=== PATIENT | female | born 1995 | race American Indian/Alaskan Native ===

== ENCOUNTER 2018-02-15 10:36 | Emergency (ER) | payer MEDICAID ==
[2018-02-15 10:49] VITALS: BP 132/87
== END 2018-02-15 15:31 ==
LOC: ED 10:36
DX: N93.9 Abnormal uterine and vaginal bleeding, unspecified (principal); Z53.21 Procedure and treatment not carried out due to patient leaving prior to being seen by health care provider

== ENCOUNTER 2018-07-17 09:36 | Emergency (ER) | payer MEDICAID ==
[2018-07-17 09:47] VITALS: BP 148/84
[2018-07-17 10:23] LABS: Basophils % (Auto) 0.5 % (0.0-1.8); Eosinophils % (Auto) 0.9 % (0.0-4.3); Hematocrit 36.8 % (30.3-42.9); Hemoglobin 12.3 gm/dl (10.1-14.3); Lymphocytes # (Auto) 2.4 K/mm3 (1.2-5.4); Lymphocytes % (Auto) 49.6 % (13.4-35.0); Mean Corpuscular HGB Conc 34 % (30-34); Mean Corpuscular Hemoglobin 29 pg (28-32); Mean Corpuscular Volume 85 fl (79-97); Monocytes # (Auto) 0.4 K/mm3 (0.0-0.8); Monocytes % (Auto) 8.5 % (0.0-7.3); Platelet Count 264 K/mm3 (140-440); Red Blood Count 4.32 M/mm3 (3.65-5.03); Red Cell Distribution Width 15.5 % (13.2-15.2)
--- NOTE | 2018-07-17 12:01 | Emergency Department Report ---
ED Female HPI - General Chief complaint: Vaginal Bleeding Stated complaint: /VAG BLEEDING Time Seen by Provider: 07/17/18 11:30 Source: patient Mode of arrival: Ambulatory Limitations: No Limitations - History of Present Illness Initial comments: This is a 23-year-old female here port that she is on control but was taken antibiotics for strep earlier this month. She said all test 2. She reports that she is having some vaginal spotting but stopped yesterday. She states that if she is not sure if she is having breakthrough bleeding from being off control or she is having a miscarriage. She is reported mild cramping to her abdomen. Pain is 2/10 and crampy. Intermittent. Reports some urinary frequency but denies any urinary burning or urgency. Denies any fever or chills. Denies any nausea or vomiting or back pain. No alleviating or exacerbating factors. MD Complaint: vaginal bleeding, other (abdominal pain) Onset/Timin -: days(s) Location: suprapubic Radiation: non-radiating Severity: mild Severity scale (0 -10): 2 Quality: cramping Consistency: intermittent Improves with: none Worsens with: none Are you Now?: Yes (she said home test positive 2) Last Menstrual Period: 12/10/17 EDC: 09/16/18 Associated Symptoms: vaginal bleeding, abdominal pain. denies: vaginal discharge, nausea/vomiting, fever/chills, headaches, loss of appetite, dysuria, hematuria, rash, seizure, shortness of breath, syncope, weakness - Related Data Sexually active: Yes Allergies Allergy/AdvReac Type Severity Reaction Status Date / Time No Known Allergies Allergy Verified 07/17/18 09:44 ED Review of Systems ROS: Stated complaint: /VAG BLEEDING Other details as noted in HPI Constitutional: denies: chills, fever ENT: denies: throat pain Respiratory: denies: cough, shortness of breath, SOB with exertion, SOB at rest , wheezing Cardiovascular: denies: chest pain, palpitations, edema, paroxysmal nocturnal dyspnea Gastrointestinal: abdominal pain. denies: nausea, vomiting, diarrhea, constipation, hematemesis, melena, hematochezia Genitourinary: frequency, abnormal menses. denies: urgency, dysuria, hematuria , discharge Musculoskeletal: denies: back pain, joint swelling, arthralgia Skin: denies: rash, lesions Neurological: denies: headache, weakness, paresthesias Psychiatric: denies: anxiety, depression Hematological/Lymphatic: denies: easy bleeding, easy bruising ED Past Medical Hx - Past Medical History Hx Hypertension: Yes Hx Asthma: Yes - Surgical History Additional Surgical History: c section. - Social History Smoking Status: Never Smoker Substance Use Type: None ED Physical Exam - General Limitations: No Limitations General appearance: alert, in no apparent distress - Head Head exam: Present: atraumatic, normocephalic, normal inspection - ENT ENT exam: Present: normal exam, normal orophraynx, mucous membranes moist - Neck Neck exam: Present: normal inspection, full ROM. Absent: tenderness - Respiratory Respiratory exam: Present: normal lung sounds bilaterally. Absent: respiratory distress, chest wall tenderness - Cardiovascular Cardiovascular Exam: Present: regular rate, normal rhythm, normal heart sounds - GI/Abdominal GI/Abdominal exam: Present: soft, normal bowel sounds. Absent: tenderness, guarding, rebound, rigid, organomegaly, mass - Extremities Exam Extremities exam: Present: normal inspection, full ROM, normal capillary refill , other (No cce. + 2 pulses in all extremities, no neurovascular compromise). Absent: tenderness, pedal edema - Back Exam Back exam: Present: normal inspection, full ROM, other (and plates without any difficulties). Absent: tenderness, CVA tenderness (R), CVA tenderness (L), paraspinal tenderness, vertebral tenderness - Neurological Exam Neurological exam: Present: alert, oriented X3, normal gait - Psychiatric Psychiatric exam: Present: normal affect, normal mood - Skin Skin exam: Present: warm, dry, intact, normal color. Absent: rash ED Course Vital Signs 07/17/18 09:44 Temperature 99.5 F Pulse Rate 88 Respiratory 16 Rate Blood Pressure 148/84 O2 Sat by Pulse 99 Oximetry - Reevaluation(s) Reevaluation #1: 07/17/18 14:17 She had uneventful ED stay. test negative ED Medical Decision Making - Lab Data Result diagrams: 07/17/18 10:03 Lab Results 07/17/18 07/17/18 07/17/18 Range/Units 10:03 10:03 10:03 WBC 4.9 (4.5-11.0) K/mm3 RBC 4.32 (3.65-5.03) M/mm3 Hgb 12.3 (10.1-14.3) gm/dl Hct 36.8 (30.3-42.9) % MCV 85 (79-97) fl MCH 29 (28-32) pg MCHC 34 (30-34) % RDW 15.5 H (13.2-15.2) % Plt Count 264 (140-440) K/mm3 Lymph % (Auto) 49.6 H (13.4-35.0) % [place] % (Auto) 8.5 H (0.0-7.3) % Eos % (Auto) 0.9 (0.0-4.3) % Baso % (Auto) 0.5 (0.0-1.8) % Lymph # 2.4 (1.2-5.4) K/mm3 [place] # 0.4 (0.0-0.8) K/mm3 Eos # 0.0 (0.0-0.4) K/mm3 Baso # 0.0 (0.0-0.1) K/mm3 Seg Neutrophils % 40.5 (40.0-70.0) % Seg Neutrophils # 2.0 (1.8-7.7) K/mm3 HCG, Quant < 2 (0-4) mIU/mL Urine Color (Yellow) Urine Turbidity (Clear) Urine pH (5.0-7.0) Ur Specific [place] (1.003-1.030) Urine Protein (Negative) mg/dL Urine Glucose (UA) (Negative) mg/dL Urine Ketones (Negative) mg/dL Urine Blood (Negative) Urine Nitrite (Negative) Urine Bilirubin (Negative) Urine Urobilinogen (<2.0) mg/dL Ur Leukocyte Esterase (Negative) Urine WBC (Auto) (0.0-6.0) /HPF Urine RBC (Auto) (0.0-6.0) /HPF U Epithel Cells (Auto) (0-13.0) /HPF Urine Mucus /HPF Blood Type O POSITIVE Antibody Screen Negative 07/17/18 Range/Units 12:35 WBC (4.5-11.0) K/mm3 RBC (3.65-5.03) M/mm3 Hgb (10.1-14.3) gm/dl Hct (30.3-42.9) % MCV (79-97) fl MCH (28-32) pg MCHC (30-34) % RDW (13.2-15.2) % Plt Count (140-440) K/mm3 Lymph % (Auto) (13.4-35.0) % [place] % (Auto) (0.0-7.3) % Eos % (Auto) (0.0-4.3) % Baso % (Auto) (0.0-1.8) % Lymph # (1.2-5.4) K/mm3 [place] # (0.0-0.8) K/mm3 Eos # (0.0-0.4) K/mm3 Baso # (0.0-0.1) K/mm3 Seg Neutrophils % (40.0-70.0) % Seg Neutrophils # (1.8-7.7) K/mm3 HCG, Quant (0-4) mIU/mL Urine Color Yellow (Yellow) Urine Turbidity Clear (Clear) Urine pH 8.0 H (5.0-7.0) Ur Specific [place] 1.017 (1.003-1.030) Urine Protein <15 mg/dl (Negative) mg/dL Urine Glucose (UA) Neg (Negative) mg/dL Urine Ketones Neg (Negative) mg/dL Urine Blood Lg (Negative) Urine Nitrite Neg (Negative) Urine Bilirubin Neg (Negative) Urine Urobilinogen < 2.0 (<2.0) mg/dL Ur Leukocyte Esterase Neg (Negative) Urine WBC (Auto) 1.0 (0.0-6.0) /HPF Urine RBC (Auto) 49.0 (0.0-6.0) /HPF U Epithel Cells (Auto) 1.0 (0-13.0) /HPF Urine Mucus Few /HPF Blood Type Antibody Screen - Radiology Data Radiology results: image reviewed interpreted by me: Dr. Jacobson. Bedside ultrasound to check for movement and heart tone and this was positive. Patient has IUP with positive movement and heart tone. - Medical Decision Making This is a 23-year-old female here reported that she has been having vaginal bleeding and some abdominal cramping. Vaginal bleeding and was yesterday and it stopped. She says she is worried because she took 2 tests at home and there are positive and she is worried about having a miscarriage. Bedside ultrasound: Bedside ultrasound done by Dr. Jose Carlos Jacobson attending physician in the emergency room. Positive movements and positive heart tone. Labs: CBC stable and hCG quantitative less than 2. Patient O+ and antibody screen negative. Assessment/plan 1: Vaginal bleeding-resolved since yesterday. HCG less than 2 2: Abdominal cramping-resolved. Bedside ultrasound positive movement and heart tone. I discussed the patient will refer POWER TOOL REPAIR TECHNICIAN for irregular menstrual cycles. Diagnosis explained to patient and she was understanding. I discussed with her that she should continue taking her vitamin and call to schedule an appointment. Discharged from ED in stable condition. Vital signs stable she is afebrile - Differential Diagnosis threatened misscarriage, abnormal menses Critical care attestation.: If time is entered above; I have spent that time in minutes in the direct care of this critically ill patient, excluding procedure time. ED Disposition Clinical Impression: Abnormal bleeding in menstrual cycle, Vaginal bleeding Abdominal pain Qualifiers: Abdominal location: lower abdomen, unspecified Qualified Code(s): R10.30 - Lower abdominal pain, unspecified Disposition: DC- TO HOME OR SELFCARE Is pt being admited?: No Does the pt Need Aspirin: No Condition: Stable Instructions: Abdominal Pain (ED), Dysfunctional Uterine Bleeding (ED) Additional Instructions: Please follow up the POST HOLE DIGGER as instructed. Increase her fluid intake Referrals: PACHECO TOM MD [Primary Care Provider] - 07/19/18 DAKOTA BLAKE MD [Staff Physician] - 07/19/18 Forms: Work/School Release Form(ED)
[2018-07-17 12:53] LABS: Bilirubin,Urine NEG (Negative); Blood,Urine LG (Negative); Color,Urine Yellow (Yellow); Mucus,Urine FEW /HPF; Protein,Urine <15 mg/dL mg/dL (Negative); Urobilinogen,Urine < 2.0 mg/dL (<2.0)
== END 2018-07-17 14:40 | disposition home or self-care (01) ==
LOC: ED 09:36
DX: R10.30 Lower abdominal pain, unspecified (principal); N93.8 Other specified abnormal uterine and vaginal bleeding; R35.0 Frequency of micturition; I10 Essential (primary) hypertension; J45.909 Unspecified asthma, uncomplicated
CPT/HCPCS: 36415; 81001; 84702; 85025; 86850; 86900; 86901; 99283

== ENCOUNTER 2018-07-28 10:01 | Emergency (ER) | payer MEDICAID ==
[2018-07-28] MEDS ORDERED: MORPHINE IV ONE (11:06)
[2018-07-28] MEDS ORDERED: ZOFRAN IV ONE (11:06)
--- NOTE | 2018-07-28 11:10 | Emergency Department Report ---
ED General Adult HPI - General Chief complaint: Headache Stated complaint: HEADACHE Time Seen by Provider: 07/28/18 10:58 Source: patient, EMS Mode of arrival: Wheelchair Limitations: No Limitations - History of Present Illness Initial comments: Patient is 23 years old female with history of hypertension. Patient presented to the ER complaining of headache, light sensitivity and nausea but no vomiting. Patient also complaining of abdominal pain diffuse in nature. Patient stated that she also been having generalized body pain. Patient denied any recent travels, no focal weakness, numbness or tingling sensation. - Related Data Allergies Allergy/AdvReac Type Severity Reaction Status Date / Time No Known Allergies Allergy Verified 07/17/18 09:44 ED Review of Systems ROS: Stated complaint: HEADACHE Other details as noted in HPI Comment: All other systems reviewed and negative Constitutional: denies: chills, fever ENT: denies: ear pain, throat pain, dental pain, hearing loss, epistaxis, congestion Respiratory: denies: cough, orthopnea, shortness of breath, SOB with exertion, SOB at rest Cardiovascular: denies: chest pain, palpitations, dyspnea on exertion Gastrointestinal: abdominal pain, nausea. denies: vomiting, diarrhea, constipation, hematemesis, melena, hematochezia Genitourinary: denies: urgency Musculoskeletal: denies: back pain Neurological: headache. denies: weakness, numbness, paresthesias, confusion, abnormal gait, vertigo ED Past Medical Hx - Past Medical History Previous Medical History?: Yes Hx Hypertension: Yes Hx of Cancer: Yes (right arm @ age 14) Hx Asthma: Yes - Surgical History Past Surgical History?: Yes Hx Breast Surgery: Yes Additional Surgical History: c section, stomach surgery - Social History Smoking Status: Current Some Day Smoker Substance Use Type: Marijuana, Prescribed ED Physical Exam - General Limitations: No Limitations General appearance: alert, in no apparent distress - Head Head exam: Present: atraumatic, normocephalic, normal inspection - Eye Eye exam: Present: normal appearance, PERRL - ENT ENT exam: Present: normal exam, normal orophraynx, mucous membranes moist - Neck Neck exam: Present: normal inspection, full ROM. Absent: tenderness, meningismus, lymphadenopathy, thyromegaly - Respiratory Respiratory exam: Present: normal lung sounds bilaterally. Absent: respiratory distress, wheezes, rales, rhonchi, stridor, chest wall tenderness, accessory muscle use, decreased breath sounds, prolonged expiratory - Cardiovascular Cardiovascular Exam: Present: tachycardia - GI/Abdominal GI/Abdominal exam: Present: soft, normal bowel sounds. Absent: distended, tenderness, guarding, rebound, rigid, bruit, pulsatile mass, hernia - Extremities Exam Extremities exam: Present: normal inspection, full ROM, normal capillary refill. Absent: pedal edema, calf tenderness - Back Exam Back exam: Present: normal inspection, full ROM. Absent: tenderness, CVA tenderness (R), CVA tenderness (L), muscle spasm, paraspinal tenderness, vertebral tenderness, rash noted - Neurological Exam Neurological exam: Present: alert, oriented X3, CN II-XII intact, normal gait, reflexes normal - Skin Skin exam: Present: warm, intact, normal color ED Course Vital Signs 07/28/18 07/28/18 07/28/18 10:09 11:43 11:45 Temperature 99.6 F Pulse Rate 115 H 105 H Respiratory 18 18 Rate Blood Pressure 139/97 135/85 O2 Sat by Pulse 98 94 97 Oximetry 07/28/18 07/28/18 07/28/18 11:52 12:00 12:15 Temperature 99.1 F Pulse Rate 103 H 111 H Respiratory 23 18 Rate Blood Pressure 117/66 117/66 O2 Sat by Pulse 98 Oximetry 07/28/18 07/28/18 07/28/18 12:30 12:51 13:01 Temperature Pulse Rate 109 H Respiratory 26 H Rate Blood Pressure 117/75 117/66 117/66 O2 Sat by Pulse 96 98 Oximetry 07/28/18 13:15 Temperature Pulse Rate Respiratory Rate Blood Pressure 117/75 O2 Sat by Pulse 97 Oximetry - Reevaluation(s) Reevaluation #1: 07/28/18 14:24 Patient stated that she is feeling much better. Her headache is completely resolved. Patient denied any fever or neck pain. On physical exam no evidence of meningism. ED Medical Decision Making - Lab Data Result diagrams: 07/28/18 11:40 07/28/18 11:40 - Radiology Data Radiology results: report reviewed Referring Physician: LANDEN FRENCH Patient Name: SHAE BARKER Date of : 1995 Sex: Female Report Date: 2018-07-28 Report Status: Finalized Findings [facility] [address] [place] [address] Cat Scan Report Signed Patient: SHAE BARKER MR#: [id number] : 1995 Acct:[id number] Age/Sex: 23 / F ADM Date: 07/28/18 Loc: ED Attending Dr: Ordering Physician: LANDEN FRENCH Date of Service: 07/28/18 Procedure(s): CT head/brain wo con Accession Number(s): [id number] cc: LANDEN FRENCH FINAL REPORT EXAM: CT HEAD/BRAIN WO CON HISTORY: HEADACHE COMPARISON: None. TECHNIQUE: Multiple contiguous axial images were obtained from the skullbase to the vertex without administration of IV contrast. FINDINGS: Brain volume is normal for age. No hemorrhage, mass, mass effect, or midline shift. Ventricles are not enlarged. Normal basal cisterns. No pathologic extra-axial fluid collection. No evidence of acute infarct. No skull fracture. Paranasal sinuses and mastoid air cells are clear. Bilateral orbits are grossly intact. IMPRESSION: No acute intracranial abnormality. Transcribed By: MITA Dictated By: DAVID REED MD Electronically Authenticated By: DAVID REED MD Signed Date/Time: 07/28/181321 DD/ 21 TD/TT: 07/28/181321 - Medical Decision Making Patient is 23 years old female with history of hypertension. Patient presented to the ER complaining of headache, light sensitivity and nausea but no vomiting. Patient also complaining of abdominal pain diffuse in nature. Patient stated that she also been having generalized body pain. Patient denied any recent travels, no focal weakness, numbness or tingling sensation. Patient's symptoms resolved with morphine and Zofran. Patient denied any headache, neck pain or fever. On exam there is no evidence of meningismus. I advised the patient to follow UP PRIMARY CARE PHYSICIAN IN THE NEXT 2-3 DAYS. I ALSO INFORMED NOT TO RETURN TO THE ER IF SHE STARTED HAVING MORE HEADACHE, NECK PAIN started to have fever. Patient has significant other understood the instructions well. Critical care attestation.: If time is entered above; I have spent that time in minutes in the direct care of this critically ill patient, excluding procedure time. ED Disposition Clinical Impression: Abdominal pain, Headache Disposition: DC-01 TO HOME OR SELFCARE Is pt being admited?: No Condition: Stable Instructions: Acute Headache (ED), Abdominal Pain (ED) Referrals: PRIMARY CARE,MD [Primary Care Provider] - 3-5 Days
[2018-07-28 12:13] LABS: Basophils % (Auto) 0.5 % (0.0-1.8); Eosinophils % (Auto) 0.4 % (0.0-4.3); Hematocrit 37.1 % (30.3-42.9); Hemoglobin 12.4 gm/dl (10.1-14.3); Lymphocytes # (Auto) 1.1 K/mm3 (1.2-5.4); Mean Corpuscular HGB Conc 34 % (30-34); Mean Corpuscular Hemoglobin 29 pg (28-32); Mean Corpuscular Volume 86 fl (79-97); Monocytes # (Auto) 0.7 K/mm3 (0.0-0.8); Monocytes % (Auto) 9.6 % (0.0-7.3); Platelet Count 225 K/mm3 (140-440); Red Blood Count 4.34 M/mm3 (3.65-5.03); Red Cell Distribution Width 16.2 % (13.2-15.2)
[2018-07-28 12:22] LABS: Alanine Aminotransferase 11 units/L (7-56); Albumin 4.5 g/dL (3.9-5); BUN/Creatinine Ratio 12; Blood Urea Nitrogen 7 mg/dL (7-17); Calcium 9.3 mg/dL (8.4-10.2); Hemolysis Index 12
[2018-07-28 12:25] LABS: HCG Qualitative,Urine Negative (Negative)
[2018-07-28 12:27] LABS: Bilirubin,Urine NEG (Negative); Blood,Urine NEG (Negative); Color,Urine Straw (Yellow); Protein,Urine <15 mg/dL mg/dL (Negative); RBC,Urine < 1.0 /HPF (0.0-6.0); Urobilinogen,Urine < 2.0 mg/dL (<2.0)
--- NOTE | 2018-07-28 13:22 | Cat Scan Report ---
FINAL REPORT EXAM: CT HEAD/BRAIN WO CON HISTORY: HEADACHE COMPARISON: None. TECHNIQUE: Multiple contiguous axial images were obtained from the skullbase to the vertex without administration of IV contrast. FINDINGS: Brain volume is normal for age. No hemorrhage, mass, mass effect, or midline shift. Ventricles are not enlarged. Normal basal cisterns. No pathologic extra-axial fluid collection. No evidence of acute infarct. No skull fracture. Paranasal sinuses and mastoid air cells are clear. Bilateral orbits are grossly intact. IMPRESSION: No acute intracranial abnormality.
[2018-07-28] MEDS ORDERED: TORADOL IV ONE (15:14)
[2018-07-28] MEDS ORDERED: TORADOL ONE (15:19)
[2018-07-28 15:21] VITALS: BP 121/77
== END 2018-07-28 15:55 | disposition home or self-care (01) ==
LOC: ED 10:01
DX: R10.84 Generalized abdominal pain (principal); R51 Headache; R11.0 Nausea; I10 Essential (primary) hypertension; J45.909 Unspecified asthma, uncomplicated; F17.200 Nicotine dependence, unspecified, uncomplicated; F12.10 Cannabis abuse, uncomplicated; Z85.89 Personal history of malignant neoplasm of other organs and systems
CPT/HCPCS: 36415; 70450; 80053; 81001; 81025; 83690; 85025; 96374; 96375; 99284; J1885; J2270; J2405

== ENCOUNTER 2021-07-08 12:49 | Emergency (ER) | payer MEDICAID, OTHER ==
[2021-07-08 12:58] VITALS: BP 130/83
[2021-07-08] MEDS ORDERED: PENICILLIN G BENZATHINE 1.2 MILLION UNIT/2 ML INJ IM ONE (13:11)
--- NOTE | 2021-07-08 13:15 | Emergency Department Report ---
ED ENT HPI - General Chief complaint: Sore Throat Stated complaint: CHEST PAIN SWOLLEN THROAT LYMPH NODES Time Seen by Provider: 07/08/21 13:09 Source: patient, family Mode of arrival: Ambulatory Limitations: No Limitations - History of Present Illness Initial comments: Chief complaint: Sore throat 26-year-old female with history of recurrent throat infection, uterine fibroids hypertension asthma presents with 2 days of sore throat. Patient has swollen tonsils. She is able to drink and eat. She is able to talk. She denies fever. She denies cough. She denies difficulty with breathing. She has infections 1- 2 times per year. MD complaint: sore throat -: Gradual, days(s) (2 days) Severity: mild Consistency: constant Improves with: none Worsens with: swallowing Associated Symptoms: pain with swallowing, sore throat. denies: fever, cough - Related Data Previous Rx's Medication Instructions Recorded Last Taken Type Ondansetron [Zofran Odt] 4 mg PO Q8HR PRN #14 tab.rapdis 07/28/18 Unknown Rx traMADoL [Ultram 50 MG tab] 50 mg PO Q4HR PRN #14 tablet 07/28/18 Unknown Rx Allergies Allergy/AdvReac Type Severity Reaction Status Date / Time sulfamethoxazole Allergy Itching Verified 07/08/21 12:53 [From Bactrim] trimethoprim [From Bactrim] Allergy Itching Verified 07/08/21 12:53 ED Dental HPI - General Chief complaint: Sore Throat Stated complaint: CHEST PAIN SWOLLEN THROAT LYMPH NODES Time Seen by Provider: 07/08/21 13:09 Source: patient, family Mode of arrival: Ambulatory Limitations: No Limitations - Related Data Previous Rx's Medication Instructions Recorded Last Taken Type Ondansetron [Zofran Odt] 4 mg PO Q8HR PRN #14 tab.rapdis 07/28/18 Unknown Rx traMADoL [Ultram 50 MG tab] 50 mg PO Q4HR PRN #14 tablet 07/28/18 Unknown Rx Allergies Allergy/AdvReac Type Severity Reaction Status Date / Time sulfamethoxazole Allergy Itching Verified 07/08/21 12:53 [From Bactrim] trimethoprim [From Bactrim] Allergy Itching Verified 07/08/21 12:53 ED Review of Systems ROS: Stated complaint: CHEST PAIN SWOLLEN THROAT LYMPH NODES Other details as noted in HPI Constitutional: malaise ENT: throat pain. denies: ear pain Respiratory: denies: cough Cardiovascular: denies: chest pain Gastrointestinal: denies: abdominal pain, nausea, vomiting ED Past Medical Hx - Past Medical History Previous Medical History?: Yes Hx Hypertension: Yes Hx Asthma: Yes - Surgical History Past Surgical History?: Yes Hx Breast Surgery: Yes Additional Surgical History: c section, stomach surgery - Social History Smoking Status: Never Smoker Substance Use Type: None - Medications Home Medications: Home Medications Medication Instructions Recorded Confirmed Last Taken Type Ondansetron [Zofran Odt] 4 mg PO Q8HR PRN #14 tab.rapdis 07/28/18 Unknown Rx traMADoL [Ultram 50 MG tab] 50 mg PO Q4HR PRN #14 tablet 07/28/18 Unknown Rx ED Physical Exam - General Limitations: No Limitations General appearance: alert, in no apparent distress, other (Pleasant comfortable talkative normal voice) - Head Head exam: Present: atraumatic, normocephalic - Eye Eye exam: Present: normal appearance - ENT ENT exam: Present: other (Exudative tonsillitis mildly edematous tonsils not touching uvula tonsils symmetric in size and shape) - Neck Neck exam: Present: normal inspection - Respiratory Respiratory exam: Present: normal lung sounds bilaterally. Absent: respiratory distress, wheezes, rales, rhonchi - Cardiovascular Cardiovascular Exam: Present: regular rate, normal rhythm, normal heart sounds. Absent: systolic murmur, diastolic murmur, rubs, gallop - GI/Abdominal GI/Abdominal exam: Present: soft, normal bowel sounds - Extremities Exam Extremities exam: Present: normal inspection - Back Exam Back exam: Present: normal inspection - Neurological Exam Neurological exam: Present: alert, oriented X3 - Psychiatric Psychiatric exam: Present: normal affect, normal mood - Skin Skin exam: Present: warm, dry, intact, normal color. Absent: rash ED Course Vital Signs 07/08/21 12:57 Temperature 98.2 F Pulse Rate 107 H Respiratory 18 Rate Blood Pressure 130/83 [Right] O2 Sat by Pulse 100 Oximetry ED Medical Decision Making - Medical Decision Making Clinical impression: Acute streptococcal pharyngitis patient received Bicillin LA in the emergency department Referred to primary care physician Critical care attestation.: If time is entered above; I have spent that time in minutes in the direct care of this critically ill patient, excluding procedure time. ED Disposition Clinical Impression: Acute streptococcal pharyngitis Disposition: HOME / SELF CARE / HOMELESS Is pt being admited?: No Does the pt Need Aspirin: No Condition: Stable Instructions: Strep Throat, Adult, [id number] Referrals: YAN FAJARDO MD [Staff Physician] - 3-5 Days
== END 2021-07-08 14:44 | disposition home or self-care (01) ==
LOC: ED 12:49
DX: J02.0 Streptococcal pharyngitis (principal); I10 Essential (primary) hypertension; J45.909 Unspecified asthma, uncomplicated; Z98.890 Other specified postprocedural states; Z88.2 Allergy status to sulfonamides
CPT/HCPCS: 96372; 99282; J0561

== ENCOUNTER 2021-08-31 12:59 | Emergency (ER) | payer OTHER ==
[2021-08-31 13:37] VITALS: BP 127/94
[2021-08-31] MEDS ORDERED: HYOSCYAMINE SUBL 0.125 MG TAB SL ONE (14:10)
[2021-08-31] MEDS ORDERED: ONDANSETRON 4 MG ODT TAB PO ONE (14:10)
[2021-08-31 14:17] LABS: HCG Qualitative,Urine Negative (Negative)
[2021-08-31 14:22] LABS: Bacteria,Urine 1+ /HPF (Negative); Bilirubin,Urine NEG (Negative); Blood,Urine NEG (Negative); Color,Urine Straw (Yellow); Mucus,Urine 3+ /HPF; Protein,Urine <15 mg/dL mg/dL (Negative); Urobilinogen,Urine < 2.0 mg/dL (<2.0)
[2021-08-31 15:30] LABS: Basophils % (Auto) 0.3 % (0.0-1.8); Eosinophils % (Auto) 0.6 % (0.0-4.3); Hematocrit 33.8 % (30.3-42.9); Hemoglobin 10.5 gm/dl (10.1-14.3); Lymphocytes # (Auto) 1.5 K/mm3 (1.2-5.4); Lymphocytes % (Auto) 21.7 % (13.4-35.0); Mean Corpuscular HGB Conc 31 % (30-34); Mean Corpuscular Volume 75 fl (79-97); Monocytes # (Auto) 0.7 K/mm3 (0.0-0.8); Monocytes % (Auto) 9.4 % (0.0-7.3); Platelet Count 308 K/mm3 (140-440); Red Blood Count 4.48 M/mm3 (3.65-5.03); Red Cell Distribution Width 17.5 % (13.2-15.2)
[2021-08-31 15:44] LABS: Alanine Aminotransferase 11 units/L (7-56); Albumin 4.6 g/dL (3.9-5); Blood Urea Nitrogen 6 mg/dL (7-17); Calcium 8.7 mg/dL (8.4-10.2); Hemolysis Index 6
--- NOTE | 2021-08-31 15:54 | Emergency Department Report ---
ED General Adult HPI - General Chief complaint: Weakness Stated complaint: VOMITING,NAUSEA,UTI,DIAHRREA Time Seen by Provider: 08/31/21 13:47 Source: patient Mode of arrival: Ambulatory Limitations: No Limitations - History of Present Illness Initial comments: Patient is a 26-year-old female presents emergency room complaints of a possible UTI. She states that for a week she has had generalized body aches, back pain, dysuria. She states this morning around 3 AM she began having nausea, vomiting, diarrhea. She denies any fever, vaginal discharge, vaginal bleeding, abdominal pain. She is able to tolerate p.o. intake. Past medical history of hyp ertension. Allergy to Bactrim. She states her last menstrual cycle was in July. - Related Data Previous Rx's Medication Instructions Recorded Last Taken Type Ondansetron [Zofran Odt] 4 mg PO Q8HR PRN #14 tab.rapdis 07/28/18 Unknown Rx traMADoL [Ultram 50 MG tab] 50 mg PO Q4HR PRN #14 tablet 07/28/18 Unknown Rx Hyoscyamine Subl [Levsin Sl 0.125 0.125 mg SL Q6HR PRN #8 tab 08/31/21 Unknown Rx TAB] Ondansetron [Zofran Odt] 4 mg PO Q8HR PRN #8 tab.rapdis 08/31/21 Unknown Rx cephALEXin [Keflex] 500 mg PO BID 7 Days #14 capsule 08/31/21 Unknown Rx Allergies Allergy/AdvReac Type Severity Reaction Status Date / Time sulfamethoxazole Allergy Itching Verified 08/31/21 13:37 [From Bactrim] trimethoprim [From Bactrim] Allergy Itching Verified 08/31/21 13:37 ED Review of Systems ROS: Stated complaint: VOMITING,NAUSEA,UTI,DIAHRREA Other details as noted in HPI Comment: All other systems reviewed and negative ED Past Medical Hx - Past Medical History Hx Hypertension: Yes Hx Asthma: Yes - Surgical History Hx Breast Surgery: Yes Additional Surgical History: c section, stomach surgery - Social History Smoking Status: Never Smoker Substance Use Type: None - Medications Home Medications: Home Medications Medication Instructions Recorded Confirmed Last Taken Type Ondansetron [Zofran Odt] 4 mg PO Q8HR PRN #14 tab.rapdis 07/28/18 Unknown Rx traMADoL [Ultram 50 MG tab] 50 mg PO Q4HR PRN #14 tablet 07/28/18 Unknown Rx Hyoscyamine Subl [Levsin Sl 0.125 0.125 mg SL Q6HR PRN #8 tab 08/31/21 Unknown Rx TAB] Ondansetron [Zofran Odt] 4 mg PO Q8HR PRN #8 tab.rapdis 08/31/21 Unknown Rx cephALEXin [Keflex] 500 mg PO BID 7 Days #14 capsule 08/31/21 Unknown Rx ED Physical Exam - General Limitations: No Limitations General appearance: alert, in no apparent distress - Head Head exam: Present: atraumatic, normocephalic - Eye Eye exam: Present: normal appearance - ENT ENT exam: Present: mucous membranes moist - Respiratory Respiratory exam: Present: normal lung sounds bilaterally. Absent: respiratory distress, wheezes, rales, rhonchi, stridor, chest wall tenderness, accessory muscle use, decreased breath sounds, prolonged expiratory - Cardiovascular Cardiovascular Exam: Present: regular rate, normal rhythm, normal heart sounds. Absent: systolic murmur, diastolic murmur, rubs, gallop - GI/Abdominal GI/Abdominal exam: Present: soft, normal bowel sounds. Absent: distended, tenderness, guarding, rebound, rigid - Neurological Exam Neurological exam: Present: alert, oriented X3 - Psychiatric Psychiatric exam: Present: normal affect, normal mood - Skin Skin exam: Present: warm, dry, intact ED Course Vital Signs 08/31/21 13:36 Temperature 98.9 F Pulse Rate 94 H Respiratory 12 Rate Blood Pressure 127/94 [Left] O2 Sat by Pulse 99 Oximetry ED Medical Decision Making - Lab Data Result diagrams: 08/31/21 15:09 08/31/21 15:09 - Medical Decision Making Patient is a 26-year-old female presents emergency room complaints of a possible UTI. She states that for a week she has had generalized body aches, back pain, dysuria. She states this morning around 3 AM she began having nausea, vomiting, diarrhea. She denies any fever, vaginal discharge, vaginal bleeding, abdominal pain. She is able to tolerate p.o. intake. Past medical history of hypertension. Allergy to Bactrim. She states her last menstrual cycle was in July. Vitals are normal. No abdominal tenderness on exam. Patient given p.o. medications while in the emergency department was able to tolerate p.o. intake without difficulty. Labs are stable. UA shows evidence of UTI with 1+ bacteria and small amount of white blood cells. Patient given prescription for medication. Advised patient Please take medication as prescribed. Increase your fluid intake. Follow-up with a primary care doctor. Return to emergency room for any new or worsening symptoms. Critical care attestation.: If time is entered above; I have spent that time in minutes in the direct care of this critically ill patient, excluding procedure time. ED Disposition Clinical Impression: Nausea vomiting and diarrhea UTI (urinary tract infection) Qualifiers: Urinary tract infection type: acute cystitis Hematuria presence: without hematuria Qualified Code(s): N30.00 - Acute cystitis without hematuria Disposition: HOME / SELF CARE / HOMELESS Is pt being admited?: No Does the pt Need Aspirin: No Condition: Stable Instructions: Urinary Tract Infection, Adult, [id number] Additional Instructions: Please take medication as prescribed. Increase your fluid intake. Follow-up with a primary care doctor. Return to emergency room for any new or worsening symptoms. Prescriptions: cephALEXin [Keflex] 500 mg PO BID 7 Days #14 capsule Hyoscyamine Subl [Levsin Sl 0.125 TAB] 0.125 mg SL Q6HR PRN #8 tab PRN Reason: diarrhea/abdominal cramping Ondansetron [Zofran Odt] 4 mg PO Q8HR PRN #8 tab.rapdis PRN Reason: vomiting Referrals: YAN FAJARDO MD [Staff Physician] - 3-5 Days [facility] [Provider Group] - 3-5 Days Forms: Work/School Release Form(ED) Time of Disposition: 16:01 Print Language: [place]
[2021-08-31 15:56] LABS: BUN/Creatinine Ratio 10
== END 2021-08-31 16:19 | disposition home or self-care (01) ==
LOC: ED 12:59
DX: N39.0 Urinary tract infection, site not specified (principal); I10 Essential (primary) hypertension; J45.909 Unspecified asthma, uncomplicated
CPT/HCPCS: 36415; 80053; 81001; 81025; 83690; 85025; 87086; 99283; Q0162